=== PATIENT | female | born 1970 | race Caucasian/White ===

== ENCOUNTER → 2016-10-06 | Outpatient (CLI) | payer OTHER ==
--- NOTE | 2016-10-06 16:05 | XR ---
EXAMINATION TYPE: XR elbow complete RT DATE OF EXAM: 10/06/2016 CLINICAL HISTORY: Fall injury yesterday with right elbow pain TECHNIQUE: Frontal, lateral and oblique images of the right elbow are obtained. COMPARISON: None FINDINGS: There is no acute fracture/dislocation evident in the right elbow. No abnormal fat pad si gns are seen. Small spur posterior olecranon is present. There is spurring from lateral epicondyle di stal humerus. The overlying soft tissue appears unremarkable. IMPRESSION: There is no acute fracture or dislocation in the right elbow.
--- NOTE | 2016-10-06 16:06 | XR ---
EXAMINATION TYPE: XR sacrum coccyx DATE OF EXAM: 10/06/2016 COMPARISON: NONE HISTORY: Fall injury with sacral and coccygeal pain. TECHNIQUE: 2 views of sacrum and coccyx are obtained. FINDINGS: There is no acute displaced sacral or coccygeal fracture identified. Sacroiliac joints are symmetric and felt within normal limits. Pubic symphysis is maintained. Overlying soft tissue is unre markable. IMPRESSION: No acute displaced sacral or coccygeal fracture is seen.
--- NOTE | 2016-10-06 16:07 | XR ---
EXAMINATION TYPE: XR lumbar spine 2 or 3V DATE OF EXAM: 10/06/2016 CLINICAL HISTORY: Fall off ladder injury with pain TECHNIQUE: Frontal and lateral images of the lumbar spine are obtained. COMPARISON: None FINDINGS: There are 5 lumbar type vertebral bodies identified. The lumbar spine shows satisfactory alignment without evidence of acute fracture or dislocation. Vertebral body heights and disk space he ights are within normal limits. Mild vascular consultation overlying abdominal aorta is seen. IMPRESSION: No acute fracture or dislocation is seen in the lumbar spine.
== END | disposition home or self-care (01) ==
LOC: RADXRMAIN 15:32
PROVIDERS: ATTEND Emergency Medicine
DX: S30.0XXA Contusion of lower back and pelvis, initial encounter (principal); S50.01XA Contusion of right elbow, initial encounter
CPT/HCPCS: 72100; 72220

== ENCOUNTER → 2016-10-08 | Outpatient (CLI) | payer OTHER ==
--- NOTE | 2016-10-08 21:45 | CT ---
EXAMINATION TYPE: CT sacrum wo con DATE OF EXAM: 10/08/2016 COMPARISON: NONE HISTORY: Pain CT DLP: mGycm Automated exposure control for dose reduction was used. FINDINGS: Multiple axial sections were obtained from the level of L5 to the bottom of the coccyx with no contra st. The segments have normal alignment. Posterior elements appear intact. There is no sign of a fracture. Sacroiliac joints appear intact. Visualized pelvic soft tissues are unremarkable. There is no sign o f free fluid in the pelvis. IMPRESSION: NEGATIVE CT SCAN OF THE SACRUM AND COCCYX. NO FRACTURE SEEN.
== END | disposition home or self-care (01) ==
LOC: RADCTMAIN 17:29
PROVIDERS: ATTEND Emergency Medicine
DX: S30.0XXA Contusion of lower back and pelvis, initial encounter (principal)
CPT/HCPCS: 72192

== ENCOUNTER → 2018-01-11 | Outpatient (CLI) | payer BC ==
--- NOTE | 2018-01-11 21:37 | CT ---
EXAMINATION TYPE: CT brain wo con DATE OF EXAM: 01/11/2018 COMPARISON: None HISTORY: c/o headaches CT DLP: 1165 mGycm. Automated Exposure Control for Dose Reduction was Utilized. TECHNIQUE: CT scan of the head is performed without contrast. FINDINGS: There is no acute intracranial hemorrhage or midline shift identified. Mild symmetric ge neralized frontal lobe atrophy is noted. No hydrocephalus is seen. The globes are intact and the vis ualized sinuses are clear. IMPRESSION: No acute intracranial hemorrhage or midline shift is seen. Mild symmetric bilateral fron john lobe atrophy is noted.
== END | disposition home or self-care (01) ==
LOC: RADCTMAIN 17:16
PROVIDERS: ATTEND Family Medicine
DX: G31.9 Degenerative disease of nervous system, unspecified (principal)
CPT/HCPCS: 70450

== ENCOUNTER 2018-04-21 05:29 | Emergency (ER) | payer BC ==
[2018-04-21] MEDS ORDERED: KETOROLAC 60 MG/2 ML VIAL IM STA (06:13)
[2018-04-21] MEDS ORDERED: MORPHINE SULFATE 4 MG/ML SYRINGE IM STA (06:13)
--- NOTE | 2018-04-21 06:16 | ED ---
Back Pain HPI - General Chief Complaint: Back Pain/Injury Stated Complaint: Fall/Back Injury Time Seen by Provider: 04/21/18 05:39 Source: patient Limitations: no limitations - History of Present Illness Initial Comments: This patient is a 47-year-old woman with history of previous sciatic back pain, who presents to be evaluated after she had a fall at home this morning. The patient had reportedly gone to let the dog out and then slipped and fell landing on the stairs. She states she went down about 2 stairs. She struck the lower right portion of her back against for the steps. The patient since at times been having pain. She denies weakness or numbness or any radiation of the pain into the legs. No change in bladder or bowel function. No abdominal pain. MD Complaint: back pain, fall -: hour(s) Similar Symptoms Previously: No Place: home Radiation: none Severity: severe Quality: aching Consistency: constant Improves With: immobilization Worsens With: movement Context: fall Associated Symptoms: denies other symptoms - Related Data Home Medications Medication Instructions Recorded Confirmed Lisinopril [Zestril] 10 mg PO DAILY 04/21/18 04/21/18 Previous Rx's Medication Instructions Recorded Ibuprofen 800 mg PO TID #20 tablet 04/21/18 Methocarbamol [Robaxin-750] 750 mg PO TID PRN #30 tablet 04/21/18 Allergies Allergy/AdvReac Type Severity Reaction Status Date / Time No Known Allergies Allergy Verified 04/21/18 05:38 Review of Systems ROS Statement: Those systems with pertinent positive or pertinent negative responses have been documented in the HPI. ROS Other: All systems not noted in ROS Statement are negative. Constitutional: Denies: weakness Eyes: Denies: vision change Respiratory: Denies: cough, dyspnea Cardiovascular: Denies: chest pain, syncope Gastrointestinal: Denies: abdominal pain, vomiting Genitourinary: Denies: dysuria Musculoskeletal: Reports: as per HPI, back pain Skin: Denies: rash Neurological: Denies: headache, weakness, numbness Past Medical History Past Medical History: Hypertension Additional Past Medical History / Comment(s): migraines History of Any Multi-Drug Resistant Organisms: None Reported Past Surgical History: No Surgical Hx Reported Past Psychological History: No Psychological Hx Reported Smoking Status: Current every day smoker Past Alcohol Use History: None Reported Past Drug Use History: None Reported General Exam Limitations: no limitations General appearance: alert, in no apparent distress Head exam: Present: atraumatic, normocephalic Eye exam: Present: normal appearance. Absent: scleral icterus, conjunctival injection Neck exam: Present: normal inspection, full ROM. Absent: tenderness Respiratory exam: Present: normal lung sounds bilaterally. Absent: respiratory distress, wheezes, rales, rhonchi, stridor, chest wall tenderness Cardiovascular Exam: Present: regular rate, normal rhythm, normal heart sounds. Absent: systolic murmur, diastolic murmur, rubs, gallop GI/Abdominal exam: Present: soft. Absent: distended, tenderness, guarding Back exam: Present: normal inspection, paraspinal tenderness (Right lumbar). Absent: CVA tenderness (R), CVA tenderness (L), vertebral tenderness Neurological exam: Present: reflexes normal. Absent: motor sensory deficit Skin exam: Present: warm, dry, intact, normal color. Absent: rash Course Vital Signs 04/21/18 05:34 Temperature 98.1 F Pulse Rate 72 Respiratory 20 Rate Blood Pressure 152/82 O2 Sat by Pulse 100 Oximetry Disposition Clinical Impression: Back pain Disposition: HOME SELF-CARE Condition: Fair Instructions (If sedation given, give patient instructions): Acute Low Back Pain (ED) Prescriptions: Ibuprofen 800 mg PO TID #20 tablet Methocarbamol [Robaxin-750] 750 mg PO TID PRN #30 tablet PRN Reason: pain Is patient prescribed a controlled substance at d/c from ED?: No Referrals: Damian Carlin MD [Primary Care Provider] - 1-2 days
--- NOTE | 2018-04-21 06:52 | XR ---
EXAM: XR Lumbar Spine, 2 or 3 Views CLINICAL HISTORY: Pain TECHNIQUE: Frontal and lateral views of the lumbar spine. COMPARISON: 10/06/2016 FINDINGS: Vertebrae: Unremarkable. No acute fracture. Normal alignment. Disc spaces: No acute findings. No significant narrowing. Soft tissues: Unremarkable. IMPRESSION: No acute findings or substantial change
[2018-04-21 07:20] VITALS: BP 143/78; PULSE 84; RESP 18; TEMP 97.9
== END 2018-04-21 07:20 | disposition home or self-care (01) ==
LOC: EC 05:29
DX: M54.5 Low back pain (principal); I10 Essential (primary) hypertension; F17.200 Nicotine dependence, unspecified, uncomplicated; Z79.899 Other long term (current) drug therapy; W01.198A Fall on same level from slipping, tripping and stumbling with subsequent striking against other object, initial encounter; Y93.89 Activity, other specified; Y92.009 Unspecified place in unspecified non-institutional (private) residence as the place of occurrence of the external cause
CPT/HCPCS: 99283; 96372 ×2; 72100; J2270; J1885

== ENCOUNTER → 2018-04-25 | Outpatient (CLI) | payer BC ==
--- NOTE | 2018-04-25 14:15 | XR ---
EXAMINATION TYPE: XR ribs RT DATE OF EXAM: 04/25/2018 COMPARISON: NONE HISTORY: Pain TECHNIQUE: 4 views submitted FINDINGS: Osseous structures intact. Visualized lung nair clear. No acute displaced fracture. IMPRESSION: No acute displaced fracture if symptoms persist consider bone scan.
--- NOTE | 2018-04-25 14:31 | US ---
EXAMINATION TYPE: US kidneys/renal and bladder DATE OF EXAM: 04/25/2018 COMPARISON: NONE CLINICAL HISTORY: 47-year-old female M54.5 Low back pain. Patient stated fell on lumbar area 6 days a go and since c/o right flank pain; microscopic hematuria TECHNIQUE: Multiple sonographic images of the kidneys and bladder are obtained. FINDINGS: EXAM MEASUREMENTS: Right Kidney: 11.4 x 4.9 x 5.4 cm Left Kidney: 12.2 x 4.7 x 5.4 cm Post Void Residual Volume: 22.0 mL Right Kidney: Some renal cortical thinning measuring 0.7cm A/P Left Kidney: Some renal cortical thinning measuring 0.6cm A/P No hydronephrosis on either side. Bladder: wnl Bilateral Jets seen: yes Normal Post Void Residual: Increased but within acceptable limits IMPRESSION: 1. There is some cortical thinning on both sides suggesting chronic medical renal disease. 2. No hydronephrosis.
== END | disposition home or self-care (01) ==
LOC: RADUSWWP 13:20
PROVIDERS: ATTEND Nurse Practitioner Women's Health
DX: N28.89 Other specified disorders of kidney and ureter (principal); M54.5 Low back pain; R31.9 Hematuria, unspecified; R07.82 Intercostal pain
CPT/HCPCS: 76770

== ENCOUNTER → 2018-11-30 | Outpatient (CLI) | payer BC ==
--- NOTE | 2018-11-30 15:31 | US ---
EXAMINATION TYPE: US venous doppler duplex LE LT DATE OF EXAM: 11/30/2018 2:00 PM COMPARISON: NONE CLINICAL HISTORY: M79.662,R22.42 PAIN AND SWELLING LOWER LIMB. Posterior knee pain, not on blood thin ners. No leg redness or swelling. SIDE PERFORMED: Left TECHNIQUE: The lower extremity deep venous system is examined utilizing real time linear array sonog jarvis with graded compression, doppler sonography and color-flow sonography. VESSELS IMAGED: External Iliac Vein (EIV) Common Femoral Vein Deep Femoral Vein Greater Saphenous Vein * Femoral Vein Popliteal Vein Small Saphenous Vein * Proximal Calf Veins (* superficial vessels) There is normal flow, compressibility, vascular waveforms. Left Leg: Negative for DVT IMPRESSION: No evident deep venous thrombosis at or above the left knee.
== END ==
LOC: RADUSWWP 13:28
PROVIDERS: ATTEND Family Medicine
DX: M79.662 Pain in left lower leg (principal); R22.42 Localized swelling, mass and lump, left lower limb

== ENCOUNTER → 2019-03-07 | Outpatient (CLI) | payer BC ==
--- NOTE | 2019-03-09 14:13 | MM ---
Reason for exam: screening (asymptomatic). Last mammogram was performed 3 years and 4 months ago. History: Patient had first child at age 32. Physical Findings: A clinical breast exam by your physician is recommended on an annual basis and results should be correlated with mammographic findings. MG Screening Mammo w CAD Bilateral CC, MLO, and XCCL view(s) were taken. Prior study comparison: October 22, 2015, right breast MG work up mamm w CAD RT. October 09, 2015, bilateral MG screening mammo w CAD. The breast tissue is heterogeneously dense. This may lower the sensitivity of mammography. No significant changes when compared with prior studies. ASSESSMENT: Negative, BI-RAD 1 RECOMMENDATION: Routine screening mammogram of both breasts in 1 year.
== END | disposition home or self-care (01) ==
LOC: RADMAMWWP 07:15
PROVIDERS: ATTEND Family Medicine
DX: Z12.31 Encounter for screening mammogram for malignant neoplasm of breast (principal)
CPT/HCPCS: 77067

== ENCOUNTER → 2019-08-09 | Outpatient (CLI) | payer BC ==
--- NOTE | 2019-08-09 12:56 | XR ---
EXAMINATION TYPE: XR wrist complete RT DATE OF EXAM: 08/09/2019 COMPARISON: NONE HISTORY: Pain TECHNIQUE: Four views submitted. FINDINGS: The osseous structures are intact. The joint spaces are preserved and there is no acute fracture or dislocation. IMPRESSION: 1. No definite acute fracture or dislocation if symptoms persist, follow-up study in 7 to 10 days wo uld be suggested if symptoms persist consider MRI.
== END | disposition home or self-care (01) ==
LOC: RADXRMAIN 12:27
PROVIDERS: ATTEND Family Medicine
DX: M25.531 Pain in right wrist (principal)

== ENCOUNTER → 2019-09-12 | Outpatient (CLI) | payer BC ==
--- NOTE | 2019-09-12 22:18 | MR ---
EXAMINATION TYPE: MR wrist RT wo con DATE OF EXAM: 09/12/2019 COMPARISON: None HISTORY: Rt wrist pain x 1 month, no trauma. Multiplanar multiecho imaging of the right wrist was performed with no contrast. The carpal bones emma ear intact. Intercarpal joint spaces are fairly normal. The triangular cartilage appears normal. Ther e is mild subcutaneous edema over the ulnar styloid process. I see no evidence of a fracture. The fle xor and extensor tendons of the wrist appear intact. Signal pattern in the distal radius and ulna is fairly normal. I see no evidence of a fracture. IMPRESSION: Mild subcutaneous edema around the ulnar styloid process and distal ulna. No discrete mass. No fractu re seen. No evidence of any significant arthritic disease.
== END | disposition home or self-care (01) ==
LOC: RADMRIMAIN 18:32
PROVIDERS: ATTEND Nurse Practitioner Women's Health
DX: M79.89 Other specified soft tissue disorders (principal)

== ENCOUNTER 2019-09-29 12:05 | Emergency (ER) | payer BC, OTHER ==
[2019-09-29 12:42] VITALS: RESP 18
--- NOTE | 2019-09-29 13:30 | XR ---
EXAMINATION TYPE: XR wrist complete RT DATE OF EXAM: 09/29/2019 COMPARISON: NONE HISTORY: Pain TECHNIQUE: Four views submitted. FINDINGS: There is a chip fracture of the ulnar styloid. There is a cortical step-off involving the posterior d istal radius on the lateral view. Suspect a distal radial fracture. Remaining osseous structures inta ct. IMPRESSION: 1. Ulnar styloid chip fracture 2. Lateral view suggest a distal subtle minimally displaced fracture of the radius correlate with poi nt tenderness.
--- NOTE | 2019-09-29 13:35 | ED ---
Upper Extremity HPI - General Chief Complaint: Extremity Injury, Upper Stated Complaint: [facility] - fall, rt wrist injury Time Seen by Provider: 09/29/19 12:44 Source: patient Mode of arrival: ambulatory Limitations: no limitations - History of Present Illness Initial Comments: 49yo female presenting for fall. Patient states she tripped at work and went to catch herself with right arm. Patient states in the process she hurt her right wrist. Endorses pain and swelling Denies numbness, tingling, loss of sensation or inability to move wrist/fingers of the affected extremity. Patient denies head or neck injury, denies injury to the chest, abdomen, back, elbow, shoulders, or LE. Patient has no additional complaints. Patient splinting wrist on arrival appears uncomfortable otherwise pleasant, nontoxic in appearance. - Related Data Home Medications Medication Instructions Recorded Confirmed Lisinopril [Zestril] 10 mg PO DAILY 04/21/18 09/29/19 SUMAtriptan succinate [Imitrex] 25 mg PO BID PRN MDD 2 tabs 09/29/19 09/29/19 Allergies Allergy/AdvReac Type Severity Reaction Status Date / Time No Known Allergies Allergy Verified 09/29/19 13:24 Review of Systems ROS Statement: Those systems with pertinent positive or pertinent negative responses have been documented in the HPI. ROS Other: All systems not noted in ROS Statement are negative. Past Medical History Past Medical History: Hypertension Additional Past Medical History / Comment(s): migraines History of Any Multi-Drug Resistant Organisms: None Reported Past Surgical History: No Surgical Hx Reported Past Psychological History: No Psychological Hx Reported Smoking Status: Current every day smoker Past Alcohol Use History: None Reported Past Drug Use History: None Reported General Exam - General Exam Comments Initial Comments: General: The patient is awake and alert, in no distress, and does not appear acutely ill. Eye: Pupils are equal, round and reactive to light, extra-ocular movements are intact. No nystagmus. There is normal conjunctiva bilaterally. No signs of icterus. No raccoon or Thorne sign Cardiovascular: There is a regular rate and rhythm. No murmur, rub or gallop is appreciated. Respiratory: Lungs are clear to auscultation, respirations are non-labored, breath sounds are equal. No wheezes, stridor, rales, or rhonchi. Musculoskeletal: Upon inspection of the wrist bilaterally there is soft tissue swelling noted over the distal right forearm. No obvious gross deformity. No lacerations or abrasions are appreciated. Patient is able to make the fingers crossed thumbs-up oppose the small digit and thumb of the right upper extremity equal comparison the left. Capillary refill less than 3 seconds. Patient refuses to fully range at the right wrist secondary to pain for age motion at the elbow and shoulder on the affected extremity strength preserved in the digits and elbow patient refused to fully strength test at the right wrist. Compartments are soft and compressible Sensation intact proximal distal to site of injury. Radial pulses equal bilaterally 2+. Neurological: A&O x 3. CN II-XII intact grossly, There are no obvious motor or sensory deficits. Coordination appears grossly intact. Speech is normal. Skin: Skin is warm and dry and no rashes or lesions are noted. Psychiatric: Cooperative, appropriate mood & affect, normal judgment. Limitations: no limitations Course Vital Signs 09/29/19 09/29/19 12:39 13:45 Temperature 98.0 F 98.2 F Pulse Rate 80 72 Respiratory 18 18 Rate Blood Pressure 132/78 128/70 O2 Sat by Pulse 98 98 Oximetry Procedures - Orthopedic Splinting/Casting Injury #1 Side: right Upper Extremity Injury Location: wrist Upper Extremity Immobilizer: wrist splint, Nima wrap, synthetic pre-padded splint Additional Comments: Patient neurovascularly intact both prior to and after splinting. Medical Decision Making - Medical Decision Making 49yo female presenting for cc of fall c wrist pain today. Findings on xr reveal a ulnar styloid fracture as well as what is felt to be acute distal radius fracture which correlates clinically. Patient N/V intact. Compartments soft amd compression, placed in a splint. Instructed to f/u with orthopedic surgery. Discussed case with Dr. Pedroza who is agreeable to car eplan and discharge. Disposition Clinical Impression: Fall, Distal radius fracture, Fracture of ulnar styloid, Right wrist fracture Disposition: HOME SELF-CARE Condition: Good Instructions (If sedation given, give patient instructions): Wrist Fracture in Adults (ED) Additional Instructions: Please use medication as discussed. Please follow-up with orthopedic surgery within the next 1-2 days.. Please return to emergency room if the symptoms increase or worsen or for any other concerns. Is patient prescribed a controlled substance at d/c from ED?: No Referrals: Damian Carlin MD [Primary Care Provider] - 1-2 days Ken Neri DO [Medical Doctor] - 1-2 days Time of Disposition: 13:34
[2019-09-29 14:09] VITALS: BP 128/70; PULSE 72; TEMP 98.2
== END 2019-09-29 13:45 | disposition home or self-care (01) ==
LOC: EC 12:05
DX: S52.501A Unspecified fracture of the lower end of right radius, initial encounter for closed fracture (principal); S52.611A Displaced fracture of right ulna styloid process, initial encounter for closed fracture; I10 Essential (primary) hypertension; F17.200 Nicotine dependence, unspecified, uncomplicated; Z79.899 Other long term (current) drug therapy; W01.0XXA Fall on same level from slipping, tripping and stumbling without subsequent striking against object, initial encounter; Y92.69 Other specified industrial and construction area as the place of occurrence of the external cause; Y99.0 Civilian activity done for income or pay
CPT/HCPCS: 29125; 99283

== ENCOUNTER → 2020-08-30 | Outpatient (CLI) | payer BC ==
--- NOTE | 2020-09-03 09:34 | MM ---
Reason for exam: screening (asymptomatic). Last mammogram was performed 1 year and 6 months ago. History: Patient had first child at age 32. Physical Findings: A clinical breast exam by your physician is recommended on an annual basis and results should be correlated with mammographic findings. MG Screening Mammo w CAD Bilateral CC and MLO view(s) were taken. Prior study comparison: March 07, 2019, bilateral MG screening mammo w CAD. October 22, 2015, right breast MG work up mamm w CAD RT. The breast tissue is heterogeneously dense. This may lower the sensitivity of mammography. ASSESSMENT: Benign, BI-RAD 2 RECOMMENDATION: Routine screening mammogram of both breasts in 1 year.
== END | disposition home or self-care (01) ==
LOC: RADMAMWWP 10:54
PROVIDERS: ATTEND Family Medicine
DX: Z12.31 Encounter for screening mammogram for malignant neoplasm of breast (principal)
CPT/HCPCS: 77067

== ENCOUNTER → 2021-09-05 | Outpatient (CLI) | payer BC ==
--- NOTE | 2021-09-09 18:18 | MM ---
Reason for Exam: Screening (asymptomatic). Last mammogram was performed 1 year(s) and 1 month(s) ago. Patient History: Menarche at age 8. First Full-Term at age 32. Late child-bearing (after 30). Postmenopausal. Patient has history of breast feeding. Risk Values: Clementine 5 year model risk: 1.7%. NCI Lifetime model risk: 12.6%. Prior Study Comparison: 10/09/2015 Bilateral Screening Mammogram, [facility]. 10/22/2015 Right Diagnostic Mammogram, [facility]. 03/07/2019 Bilateral Screening Mammogram, [facility]. 08/30/2020 Bilateral Screening Mammogram, [facility]. Tissue Density: There are scattered fibroglandular densities. Findings: Analyzed By CAD. There is no suspicious group of microcalcifications or new suspicious mass in either breast. Overall Assessment: Benign, BI-RAD 2 Management: Screening Mammogram of both breasts in 1 year. 1. Patient should continue monthly self breast exams. 2. A clinical breast exam by your physician is recommended on an annual basis. 3. This exam should not preclude additional follow-up of suspicious palpable abnormalities. Electronically signed and approved by: Kuldip Hernandez M.D. Radiologist
== END | disposition home or self-care (01) ==
LOC: RADMAMWWP 07:43
PROVIDERS: ATTEND Family Medicine
DX: Z12.31 Encounter for screening mammogram for malignant neoplasm of breast (principal); Z78.0 Asymptomatic menopausal state
CPT/HCPCS: 77063; 77067

== ENCOUNTER → 2023-03-11 | Outpatient (CLI) | payer BC ==
--- NOTE | 2023-03-12 18:12 | MM ---
Reason for Exam: Screening (asymptomatic). Last mammogram was performed 1 year(s) and 6 month(s) ago. Patient History: Menarche at age 8. First Full-Term at age 32. Late child-bearing (after 30). Postmenopausal. Patient has history of breast feeding. Risk Values: Clementine 5 year model risk: 1.7%. NCI Lifetime model risk: 12.4%. Prior Study Comparison: 03/07/2019 Bilateral Screening Mammogram, [facility]. 08/30/2020 Bilateral Screening Mammogram, [facility]. 09/05/2021 Bilateral MG 3D screening mammo w/cad, [facility]. Tissue Density: There are scattered fibroglandular densities. Findings: Analyzed By CAD. Pattern appears symmetrical and stable. No significant interval changes are evident. A few punctate calcifications are scattered bilaterally. No suspicious groups of microcalcifications, spiculated or lobular masses, architectural distortion or other secondary signs of malignancy are mammographically apparent. Overall Assessment: Benign, BI-RAD 2 Management: Screening Mammogram of both breasts in 1 year. A negative mammogram report should not preclude additional follow up of suspicious palpable abnormalities. Patient should continue monthly self breast exam. A clinical breast exam by your physician is recommended on an annual basis and results should be correlated with mammographic findings. Electronically signed and approved by: Tyler Reynolds D.O. Radiologis
== END | disposition home or self-care (01) ==
LOC: RADMAMWWP 06:55
PROVIDERS: ATTEND Family Medicine
DX: Z12.31 Encounter for screening mammogram for malignant neoplasm of breast (principal); Z78.0 Asymptomatic menopausal state
CPT/HCPCS: 77067

== ENCOUNTER → 2023-08-23 | Outpatient (CLI) | payer BC ==
--- NOTE | 2023-08-27 07:24 | CA ---
Stress Echo Report Letty Brooks Age: 53 Gender: F : 1970 Exam Date: 08/23/2023 10:33 Exam Location: [facility] Ht (in): 62 Wt (lb): 160 Ordering Physician: Gen Avendano DO Referring Physician: Gen Avendano DO Commercial Field Inspector: Cecilia Fleming RDCS Technologist Procedure CPT: Indication: I10 HTN ICD-9 Codes: Rhythm: Patient History: CHEST PAIN, DIFFICULTY IN BREATHING, PALPITATIONS, HTN, FAMILY HX OF HEART DISEASE, CURRENT SMOKER Cardiac Medications: Medications in past 24 hours: Contrast: Stress Results Protocol: Scott Total dose(mL): Exercise Duration (min:sec): 2:[address] Depression (mm): Angina Score: Poole Score: METS: 3.2 Resting HR: 67 Resting BP: 141 / 78 Peak HR: 131 Peak BP: 177 / 74 Max Predicted HR: 165 79 % Max Predicted HR Target HR: 140 Double Product: 22546 Stress Summary: BP Response: Reason for Termination: MAX EXERTION,Dyspnea Cardiac Symptoms: DIFFICULTY IN BREATHING ECG Analysis Resting ECG: Stress ECG: Arrhythmia: Echo Analysis Resting Echo: Peak Echo Analysis: MEASUREMENTS (Male/Female) Normal Values CONCLUSIONS Poor exercise tolerance. The patient exercised only for 2 minutes Normal electrocardiogram and echocardiogram to the level of heart rate achieved which she is only 79% of maximum predicted heart rate Overall nondiagnostic stress echocardiogram Dr. Son Llanos MD (Electronically Signed) Final Date: 26 August 2023 13:27
== END | disposition home or self-care (01) ==
LOC: RADNMMAIN 09:27
PROVIDERS: ATTEND Family Medicine
DX: I10 Essential (primary) hypertension (principal); R06.02 Shortness of breath; R53.83 Other fatigue; F17.200 Nicotine dependence, unspecified, uncomplicated; R00.2 Palpitations; Z82.49 Family history of ischemic heart disease and other diseases of the circulatory system
CPT/HCPCS: 93351

== ENCOUNTER 2024-03-27 09:18 | Day surgery (SDC) | payer BC ==
[2024-03-27] MEDS: IV FLUID CONTINUATION 1,000 ML IV ONE (09:38)
[2024-03-27] MEDS ORDERED: LIDOCAINE 1% (10MG/ML) FOR IV START INTRADERMA PRN (09:44)
[2024-03-27] MEDS ORDERED: LACTATED RINGERS 1,000 ML IV SCH (09:44)
[2024-03-27 09:53] VITALS: RESP 16; TEMP 97.9
[2024-03-27] MEDS ORDERED: LIDOCAINE 1% INJ 10MG/ML (20 ML MDV) ONE (10:15)
[2024-03-27] MEDS ORDERED: PROPOFOL 10 MG/ML 20 ML VIAL IV ONE (10:15)
--- NOTE | 2024-03-27 10:41 | P.PCN ---
Date of Procedure: 03/27/24 Preoperative Diagnosis: Screening for colon cancer Postoperative Diagnosis: Cecal polyp Sigmoid polyp Rectal polyps Procedure(s) Performed: Colonoscopy with hot snare polypectomy Anesthesia: MAC Surgeon: Irving Lucero Pathology: other (Cecal polypSigmoid colon polypRectal polyp) Condition: stable Disposition: same day Indications for Procedure: 53-year-old female presents today for screening colonoscopy. Denies any blood in her stool. Denies any family history of colon cancer. Risks, benefits and alternatives were provided to the patient. All questions answered. Operative Findings: Cecal polyp Rectal polyp Sigmoid colon polyp Description of Procedure: The patient was brought to the endoscopy suite and placed in left lateral decubitus position and adequate sedation was achieved using conscious sedation. Digital rectal exam was performed and mild internal hemorrhoids were palpated. An endoscope was then placed in the rectum and advanced to the cecum as identified by landmarks including the appendiceal orifice and the ileocecal valv e. The prep was good. The colonoscope was then slowly withdrawn, examining for any mucosal abnormalities. The cecum, ascending, transverse, descending and sigmoid colon were visualized adequately. There were no large neoplastic lesions noted throughout the colon. Multiple polyps were encountered. The first was noted in the cecum. This was removed with hot snare polypectomy. Hemostasis was maintained. Additional polyp was noted in the sigmoid colon. This was also removed with hot snare polypectomy. Multiple small rectal polyps were noted and did appear hyperplastic. These were biopsied. Hemostasis was maintained. Retroflexion was performed in the rectum and internal hemorrhoids. Excess air was removed, the colonoscope withdrawn and the procedure terminated. The patient was then transferred to the recovery unit in stable condition. Repeat colonoscopy should be performed in 3 years.
[2024-03-27 10:58] VITALS: BP 117/70; PULSE 61
== END 2024-03-27 11:29 | disposition home or self-care (01) ==
LOC: ORWHC2ENDO 09:18
PROVIDERS: ATTEND Surgery
DX: Z12.11 Encounter for screening for malignant neoplasm of colon (principal); D12.0 Benign neoplasm of cecum; K62.1 Rectal polyp; K64.8 Other hemorrhoids; I10 Essential (primary) hypertension; F17.200 Nicotine dependence, unspecified, uncomplicated; G43.909 Migraine, unspecified, not intractable, without status migrainosus
CPT/HCPCS: 88305; 45380; 45385; J2003; J2704